=== PATIENT | female | born 1935 | race African-American/Black ===

== ENCOUNTER 2017-12-27 14:14 | Emergency (ER) | payer OTHER, MEDICAID ==
[~2017-12-27] VITALS: Ht 172.7 cm; Wt 80.0 kg
[2017-12-27 16:27] VITALS: BP 131/64
== END 2017-12-27 16:28 | disposition home or self-care (01) ==
LOC: ER 14:14
DX: R53.1 Weakness (principal); R42 Dizziness and giddiness; I10 Essential (primary) hypertension; E11.9 Type 2 diabetes mellitus without complications; R94.31 Abnormal electrocardiogram [ECG] [EKG]; Z88.0 Allergy status to penicillin
CPT/HCPCS: 93005; 99283

== ENCOUNTER 2018-04-23 16:22 | Emergency (ER) | payer OTHER ==
[~2018-04-23] VITALS: Ht 162.6 cm; Wt 50.0 kg
[2018-04-23] MEDS ORDERED: SODIUM CHLORIDE 0.9% 500 ML IV ONE (18:24)
[2018-04-23] MEDS ORDERED: ONDANSETRON HCL 4MG/2ML INJ IV ONE (18:30)
[2018-04-23 19:06] LABS: BASOPHILS % 0.6 % (0.0-2.0); EOSINOPHILS % 1.6 % (0.0-5.0); HEMATOCRIT. 38.9 % (36.0-48.0); HEMOGLOBIN. 12.8 g/dL (12.0-16.0); MEAN CORPUSCULAR HEMOGLOBIN 27.9 pg (28.0-32.0); MEAN PLATELET VOLUME 8.6 fl (7.4-10.4); MONOCYTES % 6.6 % (2.0-8.0); NEUTROPHILS % 68.2 % (40.0-76.0); PLATELET 261 x1000/uL (130-400); RED BLOOD CELL COUNT 4.58 mill/uL (4.2-5.4); RED CELL DISTRIBUTION WIDTH 14.2 % (11.6-14.6)
[2018-04-23 19:14] LABS: INR 1.1; PROTHROMBIN TIME 10.7 sec (9.1-11.1)
[2018-04-23 19:16] LABS: CHLORIDE 104 mEq/L (98-107)
[2018-04-23 19:27] LABS: CREATINE KINASE 80 IU/L (26-192)
[2018-04-23 19:28] LABS: CREATINE KINASE MB FRACTION < 1.0 ng/mL (0.5-3.6)
[2018-04-24 00:45] VITALS: BP 166/88
== END 2018-04-24 02:09 | disposition short-term general hospital (02) ==
LOC: ER 16:22
DX: R11.10 Vomiting, unspecified (principal); R55 Syncope and collapse; I50.40 Unspecified combined systolic (congestive) and diastolic (congestive) heart failure; E11.9 Type 2 diabetes mellitus without complications; I11.0 Hypertensive heart disease with heart failure; Z88.0 Allergy status to penicillin
CPT/HCPCS: 36415; 70450; 71045; 80053; 82550; 82553; 83690; 83735; 83880; 84484; 85025; 85610; 85730; 93005; 96361; 96374; 99285; J2405; J7040

== ENCOUNTER 2022-09-03 18:15 | Emergency (ER) | payer OTHER ==
[~2022-09-03] VITALS: Ht 160 cm; Wt 55.0 kg
[2022-09-03 22:17] LABS: BASOPHILS % 0.7 % (0.0-2.0); EOSINOPHILS % 1.1 % (0.0-5.0); HEMATOCRIT. 38.9 % (36.0-48.0); HEMOGLOBIN. 12.6 g/dL (12.0-16.0); LYMPHOCYTES % 22.2 % (20.0-50.0); MEAN CORPUSCULAR HEMOGLOBIN 27.4 pg (28.0-32.0); MEAN PLATELET VOLUME 8.2 fl (7.4-10.4); MONOCYTES % 8.2 % (2.0-8.0); NEUTROPHILS % 67.8 % (40.0-76.0); PLATELET 229 x1000/uL (130-400); RED BLOOD CELL COUNT 4.58 mill/uL (4.2-5.4); RED CELL DISTRIBUTION WIDTH 14.8 % (11.6-14.6)
[2022-09-03 22:20] LABS: CHLORIDE 109 mEq/L (98-107)
[2022-09-03 22:29] LABS: ETHANOL BLOOD < 10 mg/dL
[2022-09-03] MEDS ORDERED: ASPIRIN 81MG TABLET PO ONE (23:45)
[2022-09-04] MEDS ORDERED: ASPIRIN 81MG TABLET PO NR (04:15)
[2022-09-04 07:39] VITALS: BP 165/81
== END 2022-09-04 08:00 | disposition short-term general hospital (02) ==
LOC: ER 18:15
DX: G45.9 Transient cerebral ischemic attack, unspecified (principal); I10 Essential (primary) hypertension; E11.9 Type 2 diabetes mellitus without complications; Z88.0 Allergy status to penicillin; Z20.822 Contact with and (suspected) exposure to COVID-19
CPT/HCPCS: 36415; 70450; 71045; 80048; 80053; 80320; 84484; 85025; 87426; 99285; C9803; G0480